=== PATIENT | male | born 1995 | race Caucasian/White ===

== ENCOUNTER 2017-02-19 09:32 | Emergency (ER) | payer OTHER ==
[~2017-02-19] VITALS: Ht 177.8 cm; Wt 63.5 kg
[2017-02-19 09:50] VITALS: BP 122/68
[2017-02-19] MEDS ORDERED: ONDANSETRON 4 MG TAB.RAPDIS ONE (09:50)
[2017-02-19] MEDS ORDERED: ONDANSETRON 4 MG TAB.RAPDIS SL ONE (10:00)
== END 2017-02-19 10:00 ==
LOC: ER 09:35
DX: F11.10 Opioid abuse, uncomplicated (principal)
CPT/HCPCS: 99283; A4606; Q0162; Z7610